=== PATIENT | female | born 1975 | race Caucasian/White ===

== ENCOUNTER → 2016-11-10 | Outpatient (CLI) | payer BC ==
[~2016-11-10] MED LIST: IBUP600T26 PO; MOBI7.5T10 PO; PRIL20CA9 PO; PROA1AER INH; TIZA2CAP3 PO; XANA1TAB2 PO; ZYRT10CA PO; [UNRECOGNIZED DRUG - REMARK] PO
--- NOTE | 2016-11-10 10:11 | REP ---
Complete abdominal sonography: History: Abdominal pain right upper quadrant. Comparison CT study October 19, 2015. Sonographic findings: Scanning through the right upper quadrant of the abdomen demonstrates normal homogeneous liver. Common bile duct is normal post cholecystectomy measuring 0.6 cm in diameter. No focal hepatic lesion is seen. There is no evidence of ascites. The pancreas head region is obscured by abdominal gas. No pancreatic abnormality is observed. A normal size spleen is seen measuring 9.3 cm. It is homogeneous. There is no evidence of ascites. A normal caliber aorta is seen measuring 1.8 cm in greatest diameter. Renal cortical echogenicity pattern is normal and contours are smooth on both sides. The right kidney measures 11.0 x 5.9 x 4.4 cm. Left renal dimensions are 11.1 x 4.7 x 5.3 cm. Impression: Unremarkable complete abdominal sonography. The patient status post cholecystectomy. Signed by Daniel Barcenas MD 11/10/2016 11:22 A
== END ==
LOC: M RAD 07:10
PROVIDERS: ATTEND Family Medicine
DX: R10.84 Generalized abdominal pain (principal)

== ENCOUNTER → 2016-11-14 | Outpatient (CLI) | payer BC ==
[2016-11-14 08:22] LABS: ALBUMIN 3.8 GM/DL (3.2-5.2); ALBUMIN/GLOBULIN RATIO 1.23 (1.00-1.93); ALKALINE PHOSPHATASE 42 U/L (45-117); ALT/SGPT 13 U/L (12-78); AMYLASE 58 U/L (25-115); ANION GAP 7 MEQ/L (8-16); AST/SGOT 13 U/L (15-37); BILIRUBIN,TOTAL 0.3 MG/DL (0.2-1.0); BLOOD UREA NITROGEN 13 MG/DL (7-18); CALCIUM LEVEL 8.4 MG/DL (8.5-10.1); CARBON DIOXIDE LEVEL 28 MEQ/L (21-32); CHLORIDE LEVEL 110 MEQ/L (98-107); CREATININE FOR GFR 0.69 MG/DL (0.55-1.02); GLOMERULAR FILTRATION RATE > 60.0 (>58); GLUCOSE, FASTING 94 MG/DL (70-105); POTASSIUM SERUM 4.2 MEQ/L (3.5-5.1); SODIUM LEVEL 145 MEQ/L (136-145); TOTAL PROTEIN 6.9 GM/DL (6.4-8.2)
== END ==
LOC: M LAB 07:18
PROVIDERS: ATTEND Family Medicine
DX: R10.84 Generalized abdominal pain (principal)

== ENCOUNTER → 2017-02-16 | Outpatient (REF) | payer BC ==
[~2017-02-16] MED LIST changes: +IBUP-1022 PO; -IBUP600T26 PO; +MOBI4TAB PO; -MOBI7.5T10 PO; -PROA1AER INH; +PROAAER10 INH
== END ==
LOC: M SFHCWAGY 15:31
PROVIDERS: ATTEND Family Medicine
DX: Z12.4 Encounter for screening for malignant neoplasm of cervix (principal)

== ENCOUNTER 2017-07-10 10:31 | Emergency (ER) | payer BC ==
[~2017-07-10] VITALS: Ht 162.6 cm; Wt 60.6 kg
[2017-07-10] MEDS ORDERED: LORA10TA2 (10:47)
[2017-07-10] MEDS ORDERED: BENZ100C5 (10:47)
[2017-07-10] MEDS ORDERED: FAMO1TAB11 (10:47)
[2017-07-10] MEDS ORDERED: FLUTISP (10:47)
[2017-07-10] MEDS ORDERED: ASPIRIN 81 MG CHEW TABLET PO ONE (11:15)
[2017-07-10 11:26] LABS: BASO # 0.1 10^3/uL (0.0-0.2); BASO % 1.2 % (0.0-1.0); EOS # 0.1 10^3/uL (0.0-0.50); EOS % 1.4 % (0.0-3.0); IMMATURE GRANULOCYTE % 0.2 % (0-0); LYMPH # 1.9 10^3/uL (1.5-4.5); LYMPH % 37.7 % (24.0-44.0); MEAN CORPUSCULAR HEMOGLOBIN 30.1 pg (27.0-33.0); MEAN CORPUSCULAR HGB CONC 33.2 g/dl (32.0-36.5); MEAN CORPUSCULAR VOLUME 90.8 fl (80.0-96.0); MONO # 0.4 10^3/uL (0.0-0.8); MONO % 7.8 % (0.0-5.0); NEUTROPHILS # 2.7 10^3/uL (1.8-7.7); NEUTROPHILS % 51.7 % (36.0-66.0); PLATELET COUNT, AUTOMATED 227 10^3/uL (150-450); WHITE BLOOD COUNT 5.1 10^3/uL (4.0-10.0)
[2017-07-10 11:30] LABS: INR 1.01
[2017-07-10 11:44] LABS: ALBUMIN 4.2 GM/DL (3.2-5.2); ALBUMIN/GLOBULIN RATIO 1.11 (1.00-1.93); ALKALINE PHOSPHATASE 45 U/L (45-117); ALT/SGPT 19 U/L (12-78); ANION GAP 9 MEQ/L (8-16); AST/SGOT 21 U/L (7-37); BILIRUBIN,DIRECT 0.1 MG/DL (0.0-0.2); BILIRUBIN,TOTAL 0.4 MG/DL (0.2-1.0); BLOOD UREA NITROGEN 14 MG/DL (7-18); CALCIUM LEVEL 8.9 MG/DL (8.5-10.1); CARBON DIOXIDE LEVEL 26 MEQ/L (21-32); CHLORIDE LEVEL 106 MEQ/L (98-107); CREATININE FOR GFR 0.76 MG/DL (0.55-1.02); GLOMERULAR FILTRATION RATE > 60.0 (>58); GLUCOSE, FASTING 90 MG/DL (70-105); POTASSIUM SERUM 3.1 MEQ/L (3.5-5.1); SODIUM LEVEL 141 MEQ/L (136-145)
[2017-07-10] MEDS ORDERED: POTASSIUM CHLORIDE 10 MEQ SR TABLET PO ONE (12:00)
--- NOTE | 2017-07-10 12:05 | REP ---
Portable chest x-ray: Single view. History: Chest pain. Comparison study July 15, 2015. Findings: EKG monitoring electrodes overlie the chest. Lungs are well inflated and clear. Heart is not enlarged. Pulmonary vasculature is not increased. Pleural angles are sharp. No bony abnormality is seen. Impression: Negative portable chest x-ray. Signed by Daniel Barcenas MD 07/10/2017 04:00 P
[2017-07-10] MEDS ORDERED: ASPI81TA85 PO (16:24)
[2017-07-10 16:53] VITALS: BP 122/70
--- NOTE | 2017-07-10 21:17 | ECGEPIP ---
Stationary ECG Study 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
== END 2017-07-10 16:54 | disposition home or self-care (01) ==
LOC: M ED 10:31
DX: E87.6 Hypokalemia (principal); R07.9 Chest pain, unspecified; F41.9 Anxiety disorder, unspecified; G89.29 Other chronic pain; M54.9 Dorsalgia, unspecified; Z82.49 Family history of ischemic heart disease and other diseases of the circulatory system; Z79.82 Long term (current) use of aspirin; Z79.899 Other long term (current) drug therapy

== ENCOUNTER → 2017-07-26 | Outpatient (CLI) | payer BC ==
[2017-07-26 18:41] LABS: INR 1.06
[2017-07-26 18:47] LABS: ALBUMIN 4.4 GM/DL (3.2-5.2); ALBUMIN/GLOBULIN RATIO 1.33 (1.00-1.93); ALKALINE PHOSPHATASE 52 U/L (45-117); ALT/SGPT 18 U/L (12-78); ANION GAP 5 MEQ/L (8-16); AST/SGOT 23 U/L (7-37); BILIRUBIN,DIRECT 0.2 MG/DL (0.0-0.2); BILIRUBIN,TOTAL 0.4 MG/DL (0.2-1.0); BLOOD UREA NITROGEN 10 MG/DL (7-18); CALCIUM LEVEL 8.8 MG/DL (8.5-10.1); CARBON DIOXIDE LEVEL 28 MEQ/L (21-32); CHLORIDE LEVEL 107 MEQ/L (98-107); CREATININE FOR GFR 0.76 MG/DL (0.55-1.02); GLOMERULAR FILTRATION RATE > 60.0 (>58); GLUCOSE, FASTING 84 MG/DL (70-105); POTASSIUM SERUM 4.1 MEQ/L (3.5-5.1); SODIUM LEVEL 140 MEQ/L (136-145); TOTAL PROTEIN 7.7 GM/DL (6.4-8.2)
== END ==
LOC: M LAB 17:31
DX: E83.00 Disorder of copper metabolism, unspecified (principal); E87.6 Hypokalemia; R04.0 Epistaxis
CPT/HCPCS: 82525

== ENCOUNTER → 2017-07-29 | Outpatient (REF) | payer BC | LOC: M SFHCPLAZ 12:32 | DX: E87.6 Hypokalemia (principal); E83.00 Disorder of copper metabolism, unspecified; R04.0 Epistaxis | CPT/HCPCS: 82525 ==

== ENCOUNTER → 2017-08-13 | Outpatient (CLI) | payer BC ==
[2017-08-13 17:48] LABS: MAGNESIUM LEVEL 2.2 MG/DL (1.8-2.4)
== END ==
LOC: M LAB 17:09
DX: I49.3 Ventricular premature depolarization (principal)
CPT/HCPCS: 83735

== ENCOUNTER → 2017-09-20 | Outpatient (CLI) | payer BC | LOC: M RAD 06:26 | DX: R10.11 Right upper quadrant pain (principal); Z90.49 Acquired absence of other specified parts of digestive tract | CPT/HCPCS: 76705 ==

== ENCOUNTER 2017-10-01 06:30 | Day surgery (SDC) | payer BC ==
[2017-10-01] MEDS ORDERED: SIMETHICONE 40MG/0.6ML DROPS 30ML As Ordered (06:58)
[2017-10-01] MEDS ORDERED: LIDOCAINE 2% INJ 100 MG/5 ML SDV (FOR ANES.) As Ordered (07:16)
[2017-10-01] MEDS ORDERED: PROPOFOL 200 MG/20 ML VIAL As Ordered ×2 (07:16→07:50)
[2017-10-01] MEDS ORDERED: METOCLOPRAMIDE INJ 10MG/2ML VIAL (J2765) As Ordered (07:40)
[2017-10-01] MEDS ORDERED: NS 1,000 ML IV (08:00)
== END 2017-10-01 08:27 | disposition home or self-care (01) ==
LOC: M SDC 06:30
DX: R13.10 Dysphagia, unspecified (principal); K29.70 Gastritis, unspecified, without bleeding; I49.9 Cardiac arrhythmia, unspecified; R01.1 Cardiac murmur, unspecified; R10.9 Unspecified abdominal pain; L40.9 Psoriasis, unspecified; F41.9 Anxiety disorder, unspecified; J45.909 Unspecified asthma, uncomplicated; Z79.899 Other long term (current) drug therapy; Z79.3 Long term (current) use of hormonal contraceptives; Z98.51 Tubal ligation status
CPT/HCPCS: 43239

== ENCOUNTER → 2017-11-09 | Outpatient (CLI) | payer BC ==
[~2017-11-09] MED LIST changes: +E-Z-GAS II EFFERVESCENT PACKET (SODIUM BICARB./CITRIC ACID/SIMETHICONE) As Ordered; +E-Z-HD 98% w/w 340GM SUSP BTL As Ordered; +E-Z-PAQUE 96% w/w SUSP 176GM BTL As Ordered; -IBUP-1022 PO; -MOBI4TAB PO; -PRIL20CA9 PO; -PROAAER10 INH; -TIZA2CAP3 PO; -XANA1TAB2 PO; -ZYRT10CA PO; -[UNRECOGNIZED DRUG - REMARK] PO
== END ==
LOC: M RAD 07:21
DX: R13.10 Dysphagia, unspecified (principal)
CPT/HCPCS: 74245

== ENCOUNTER → 2018-03-19 | Outpatient (REF) | payer BC ==
[2018-03-22 14:58] LABS: HPV HYBRID CAPTURE II Negative (Negative)
== END ==
LOC: M SFHCWAGY 14:34
DX: Z12.4 Encounter for screening for malignant neoplasm of cervix (principal)
CPT/HCPCS: G0123

== ENCOUNTER → 2018-06-11 | Outpatient (CLI) | payer BC | LOC: M WHC 12:54 | DX: Z12.31 Encounter for screening mammogram for malignant neoplasm of breast (principal); Z92.0 Personal history of contraception | CPT/HCPCS: 77067 ==

== ENCOUNTER → 2019-07-17 | Outpatient (CLI) | payer BC ==
[~2019-07-17] MED LIST changes: +ALPR0.5T3; +ASPI81TA85 PO; +BENZ-18; +DEPO150I IM; -E-Z-GAS II EFFERVESCENT PACKET (SODIUM BICARB./CITRIC ACID/SIMETHICONE) As Ordered; -E-Z-HD 98% w/w 340GM SUSP BTL As Ordered; -E-Z-PAQUE 96% w/w SUSP 176GM BTL As Ordered; +FAMO1TAB11; +FLUTISP; +IBUP-1022 PO; +IBUP1TAB7 PO; +LORA-243; +MOBI4TAB PO; +PRIL20CA9 PO; +PROAAER10 INH; +TIZA2CAP PO; +XANA1TAB2 PO; +ZYRT10CA PO; +[UNRECOGNIZED DRUG - REMARK] PO
[2019-07-17 09:57] LABS: BASO % 1.1 % (0.0-1.0); EOS # 0.1 10^3/uL (0.0-0.5); EOS % 2.5 % (0.0-3.0); HEMATOCRIT 45.2 % (36.0-47.0); HEMOGLOBIN 14.4 g/dl (12.0-15.5); LYMPH # 1.2 10^3/uL (1.5-5.0); LYMPH % 34.1 % (24.0-44.0); MEAN CORPUSCULAR HEMOGLOBIN 29.7 pg (27.0-33.0); MEAN CORPUSCULAR HGB CONC 31.9 g/dl (32.0-36.5); MEAN CORPUSCULAR VOLUME 93.2 fl (80.0-96.0); MONO # 0.4 10^3/uL (0.0-0.8); MONO % 10.3 % (0.0-5.0); NEUTROPHILS # 1.9 10^3/uL (1.5-8.5); NEUTROPHILS % 51.7 % (36.0-66.0); PLATELET COUNT, AUTOMATED 217 10^3/uL (150-450); RED BLOOD COUNT 4.85 10^6/uL (4.00-5.40); WHITE BLOOD COUNT 3.6 10^3/uL (4.0-10.0)
[2019-07-17 10:41] LABS: ALT/SGPT 21 U/L (12-78); BILIRUBIN,TOTAL 0.3 MG/DL (0.2-1.0); BLOOD UREA NITROGEN 22 MG/DL (7-18); CARBON DIOXIDE LEVEL 28 MEQ/L (21-32); CHLORIDE LEVEL 109 MEQ/L (98-107); CHOLESTEROL LEVEL 162 MG/DL (<200); CHOLESTEROL RISK RATIO 2.531 (<5); CREATININE FOR GFR 0.75 MG/DL (0.55-1.30); FREE T4 0.79 NG/DL (0.76-1.46); GLOMERULAR FILTRATION RATE > 60.0 (>58); GLUCOSE, FASTING 86 MG/DL (70-100); HDL CHOLESTEROL 64 MG/DL (>40); LDL CHOLESTEROL 91 MG/DL (<100); NON-HDL-C 98 MG/DL; POTASSIUM SERUM 4.6 MEQ/L (3.5-5.1); SODIUM LEVEL 143 MEQ/L (136-145); TOTAL PROTEIN 7.4 GM/DL (6.4-8.2); TRIGLYCERIDES LEVEL 35 MG/DL (<150)
== END ==
LOC: M PLALAB 07:59
PROVIDERS: ATTEND Internal Medicine
DX: R10.11 Right upper quadrant pain (principal); R53.82 Chronic fatigue, unspecified; Z82.49 Family history of ischemic heart disease and other diseases of the circulatory system

== ENCOUNTER → 2020-04-08 | Outpatient (CLI) | payer BC ==
[~2020-04-08] MED LIST changes: -ASPI81TA85 PO; +ASPI81TA86 PO
[2020-04-08 17:59] LABS: HEMATOCRIT 42.7 % (36.0-47.0); HEMOGLOBIN 13.8 g/dl (12.0-15.5); MEAN CORPUSCULAR HEMOGLOBIN 29.6 pg (27.0-33.0); MEAN CORPUSCULAR HGB CONC 32.3 g/dl (32.0-36.5); MEAN CORPUSCULAR VOLUME 91.6 fl (80.0-96.0); PLATELET COUNT, AUTOMATED 239 10^3/uL (150-450); RED BLOOD COUNT 4.66 10^6/uL (4.00-5.40); WHITE BLOOD COUNT 4.8 10^3/uL (4.0-10.0)
[2020-04-08 18:19] LABS: ALBUMIN 3.9 GM/DL (3.2-5.2); ALT/SGPT 29 U/L (12-78); BILIRUBIN,TOTAL 0.3 MG/DL (0.2-1.0); BLOOD UREA NITROGEN 21 MG/DL (7-18); CARBON DIOXIDE LEVEL 30 MEQ/L (21-32); CHLORIDE LEVEL 106 MEQ/L (98-107); CREATININE FOR GFR 0.81 MG/DL (0.55-1.30); GLOMERULAR FILTRATION RATE > 60.0 (>58); GLUCOSE, FASTING 80 MG/DL (70-100); POTASSIUM SERUM 4.1 MEQ/L (3.5-5.1); SODIUM LEVEL 139 MEQ/L (136-145); TOTAL PROTEIN 7.5 GM/DL (6.4-8.2)
== END ==
LOC: M PLALAB 15:51
DX: M06.9 Rheumatoid arthritis, unspecified (principal)

== ENCOUNTER → 2020-04-29 | Outpatient (REF) | payer BC | LOC: M SFHCPLAZ 15:20 | DX: M05.741 Rheumatoid arthritis with rheumatoid factor of right hand without organ or systems involvement (principal) ==

== ENCOUNTER → 2020-05-19 | Outpatient (REF) | payer BC ==
[2020-05-19 13:35] LABS: BASO # 0.1 10^3/uL (0.0-0.2); BASO % 0.9 % (0.0-1.0); EOS # 0.1 10^3/uL (0.0-0.5); EOS % 1.1 % (0.0-3.0); HEMATOCRIT 42.7 % (36.0-47.0); HEMOGLOBIN 13.7 g/dl (12.0-15.5); LYMPH # 1.3 10^3/uL (1.5-5.0); LYMPH % 25.1 % (24.0-44.0); MEAN CORPUSCULAR HEMOGLOBIN 29.5 pg (27.0-33.0); MEAN CORPUSCULAR HGB CONC 32.1 g/dl (32.0-36.5); MEAN CORPUSCULAR VOLUME 91.8 fl (80.0-96.0); MONO # 0.6 10^3/uL (0.0-0.8); MONO % 11.2 % (0.0-5.0); NEUTROPHILS # 3.3 10^3/uL (1.5-8.5); NEUTROPHILS % 61.5 % (36.0-66.0); PLATELET COUNT, AUTOMATED 221 10^3/uL (150-450); RED BLOOD COUNT 4.65 10^6/uL (4.00-5.40); WHITE BLOOD COUNT 5.3 10^3/uL (4.0-10.0)
[2020-05-19 13:56] LABS: ERYTHROCYTE SEDIMENTATION RATE 9 mm/hr (0-20)
[2020-05-19 13:57] LABS: ALBUMIN 4.2 GM/DL (3.2-5.2); ALT/SGPT 20 U/L (12-78); BILIRUBIN,TOTAL 0.4 MG/DL (0.2-1.0); BLOOD UREA NITROGEN 14 MG/DL (7-18); CARBON DIOXIDE LEVEL 27 MEQ/L (21-32); CHLORIDE LEVEL 107 MEQ/L (98-107); CREATININE FOR GFR 0.72 MG/DL (0.55-1.30); GLOMERULAR FILTRATION RATE > 60.0 (>58); GLUCOSE, FASTING 73 MG/DL (70-100); POTASSIUM SERUM 4.3 MEQ/L (3.5-5.1); SODIUM LEVEL 140 MEQ/L (136-145); TOTAL PROTEIN 7.6 GM/DL (6.4-8.2)
[2020-05-19 14:17] LABS: HEPATITIS B SURFACE ANTIGEN NEGATIVE (NEGATIVE)
[2020-05-19 14:45] LABS: HEPATITIS C VIRUS ABY INDEX 0.1 INDEX (<0.8)
[2020-05-20 23:07] LABS: ANA (HEP2) Positive (.); HEPATITIS B CORE ANTIBODY IGG Negative (Negative); Lyme Disease IgG/IgM Antibodie <0.91 ISR (0.00-0.90); Lyme Disease IgM Ab Quantitati <0.80 index (0.00-0.79); SMITHS ANTIBODY 0.4 AI (0.0-0.9)
== END ==
LOC: M SFHCRHEU 10:12
PROVIDERS: ATTEND Internal Medicine
DX: L40.50 Arthropathic psoriasis, unspecified (principal)

== ENCOUNTER → 2020-07-29 | Outpatient (REF) | payer BC ==
[2020-07-29 16:23] LABS: ALBUMIN 4.1 GM/DL (3.2-5.2); ALT/SGPT 21 U/L (12-78); BILIRUBIN,TOTAL 0.4 MG/DL (0.2-1.0); BLOOD UREA NITROGEN 21 MG/DL (7-18); CALCIUM LEVEL 8.8 MG/DL (8.5-10.1); CARBON DIOXIDE LEVEL 25 MEQ/L (21-32); CHLORIDE LEVEL 108 MEQ/L (98-107); CPK CREATINE PHOSPHOKINASE 91 U/L (26-192); CREATININE FOR GFR 1.01 MG/DL (0.55-1.30); GLOMERULAR FILTRATION RATE > 60.0 (>58); GLUCOSE, FASTING 82 MG/DL (70-100); SODIUM LEVEL 138 MEQ/L (136-145); TOTAL PROTEIN 7.4 GM/DL (6.4-8.2)
[2020-07-29 18:04] LABS: PTH INTACT 24.4 PG/ML (18.5-88.0); TOTAL 25(OH) VITAMIN D 29.2 NG/ML (30.0-100.0)
== END ==
LOC: M PLALAB 13:14
PROVIDERS: ATTEND Family Medicine
DX: R76.8 Other specified abnormal immunological findings in serum (principal); E55.9 Vitamin D deficiency, unspecified

== ENCOUNTER → 2020-09-27 | Outpatient (REF) | payer BC ==
[2020-09-27 17:42] LABS: BASO % 0.9 % (0.0-1.0); EOS % 0.7 % (0.0-3.0); HEMATOCRIT 40.6 % (36.0-47.0); HEMOGLOBIN 12.9 g/dl (12.0-15.5); LYMPH # 1.1 10^3/uL (1.5-5.0); LYMPH % 25.3 % (24.0-44.0); MEAN CORPUSCULAR HEMOGLOBIN 28.6 pg (27.0-33.0); MEAN CORPUSCULAR HGB CONC 31.8 g/dl (32.0-36.5); MONO # 0.6 10^3/uL (0.0-0.8); MONO % 13.1 % (2.0-8.0); NEUTROPHILS # 2.7 10^3/uL (1.5-8.5); NEUTROPHILS % 59.8 % (36.0-66.0); PLATELET COUNT, AUTOMATED 197 10^3/uL (150-450); RED BLOOD COUNT 4.51 10^6/uL (4.00-5.40); WHITE BLOOD COUNT 4.5 10^3/uL (4.0-10.0)
[2020-09-27 18:14] LABS: ALBUMIN 4.1 GM/DL (3.2-5.2); ALT/SGPT 25 U/L (12-78); BILIRUBIN,TOTAL 0.4 MG/DL (0.2-1.0); BLOOD UREA NITROGEN 19 MG/DL (7-18); CALCIUM LEVEL 8.7 MG/DL (8.5-10.1); CARBON DIOXIDE LEVEL 26 MEQ/L (21-32); CHLORIDE LEVEL 105 MEQ/L (98-107); GLOMERULAR FILTRATION RATE > 60.0 (>58); GLUCOSE, FASTING 80 MG/DL (70-100); POTASSIUM SERUM 3.8 MEQ/L (3.5-5.1); SODIUM LEVEL 137 MEQ/L (136-145); TOTAL PROTEIN 7.3 GM/DL (6.4-8.2)
[2020-09-27 18:30] LABS: ERYTHROCYTE SEDIMENTATION RATE 11 mm/hr (0-20)
== END ==
LOC: M SFHCRHEU 12:15
PROVIDERS: ATTEND Internal Medicine
DX: L40.50 Arthropathic psoriasis, unspecified (principal)

== ENCOUNTER → 2020-10-05 | Outpatient (CLI) | payer BC ==
--- NOTE | 2020-10-05 09:49 | REPMRS ---
Patient History The patient states she has not had a clinical breast exam in over a year. No known family history of cancer. Taking hormonal contraceptives for 15 years. Patient states she was diagnosed with psoriatic arthritis 03/2020 Digital Woman Screen Mammo: October 05, 2020 - Exam #: [id number] Bilateral CC and MLO view(s) were taken. Technologist: Jemma Pena, Technologist Prior study comparison: June 11, 2018, bilateral digital woman screen mammo performed at [facility]. February 09, 2014, bilateral digital woman screen mammo, performed at [facility]. June 27, 2012, bilateral digital woman screen mammo, performed at [facility]. FINDINGS: The breast tissue is heterogeneously dense. This may lower the sensitivity of mammography. The Volpara volumetric breast density category is: C. There is a moderate amount of heterogeneously dense fibroglandular tissue which is fairly symmetric. There is no interval development of dominant mass, architectural distortion, or grouped microcalcification typical of malignancy. There has been no change in the appearance of the mammogram from the prior studies. 3-D tomosynthesis shows no additional findings. Assessment: BI-RADS/ACR category 1 mammogram. Negative Mammogram. Recommendation Routine screening mammogram of both breasts in 1 year (for women over age 40). This patient's [facility] Lifetime Breast Cancer RIsk is estimated at 9.4 %. This mammogram was interpreted with the aid of an FDA-approved computer-aided dectection system. Electronically Signed By: Long Barcenas MD 10/05/20 0980
== END ==
LOC: M WHC 08:23
PROVIDERS: ATTEND Family Medicine
DX: Z12.31 Encounter for screening mammogram for malignant neoplasm of breast (principal); Z79.3 Long term (current) use of hormonal contraceptives

== ENCOUNTER → 2020-11-02 | Outpatient (REF) | payer BC ==
[2020-11-02 14:49] LABS: BASO % 0.9 % (0.0-1.0); EOS % 0.6 % (0.0-3.0); HEMATOCRIT 44.7 % (36.0-47.0); HEMOGLOBIN 14.4 g/dl (12.0-15.5); LYMPH # 1.2 10^3/uL (1.5-5.0); LYMPH % 25.3 % (24.0-44.0); MEAN CORPUSCULAR HEMOGLOBIN 29.6 pg (27.0-33.0); MEAN CORPUSCULAR HGB CONC 32.2 g/dl (32.0-36.5); MONO # 0.6 10^3/uL (0.0-0.8); MONO % 12.4 % (2.0-8.0); NEUTROPHILS # 2.8 10^3/uL (1.5-8.5); NEUTROPHILS % 60.6 % (36.0-66.0); PLATELET COUNT, AUTOMATED 187 10^3/uL (150-450); RED BLOOD COUNT 4.86 10^6/uL (4.00-5.40); WHITE BLOOD COUNT 4.7 10^3/uL (4.0-10.0)
[2020-11-02 15:28] LABS: FREE T4 0.91 NG/DL (0.76-1.46); THYROID STIMULATING HORMONE 1.97 uIU/ML (0.358-3.740)
== END ==
LOC: M SFHCPLAZ 08:57
PROVIDERS: ATTEND Physician Assistant Medical
DX: L40.50 Arthropathic psoriasis, unspecified (principal); F41.1 Generalized anxiety disorder

== ENCOUNTER → 2020-11-16 | Outpatient (CLI) | payer BC ==
--- NOTE | 2020-11-16 09:30 | REPPI ---
INDICATION: CERVICOGENIC HEADACHE COMPARISON: None. TECHNIQUE: AP, lateral, flexion/extension, bilateral oblique, and open-mouth views. FINDINGS: Alignment is maintained. There is no evidence for acute fracture / compression injury or subluxation. Mild focal degenerative change at C5-6 and C6-7 include endplate sclerosis with minimal disc space narrowing. Remainder of the examination is age-appropriate. Oblique views demonstrate patent neural foramen. Open mouth view demonstrates normal C1-C2 articulation and odontoid process. IMPRESSION: Mild degenerative spondylosis at C5-6 and C6-7. <Electronically signed by Elio Amaya > 11/16/20 0905
== END ==
LOC: M PLAIMG 08:05
PROVIDERS: ATTEND Family Medicine
DX: R51.9 Headache, unspecified (principal)

== ENCOUNTER → 2020-12-01 | Outpatient (CLI) | payer BC ==
--- NOTE | 2020-12-01 11:24 | REP ---
INDICATION: FACIAL PARESTHESIA, CERVICAL RADICULOPATHY, KELLER. COMPARISON: Comparison MRI study is from 19 May 2015.. TECHNIQUE: Axial and sagittal imaging planes are utilized for T1 and T2-weighted scans. Sequences include spin-echo, fast spin echo, FLAIR, and diffusion weighted sequences. FINDINGS: No bony calvarial lesion is seen. Craniocervical junction and upper cervical cord are normal in appearance. There is no MR evidence of significant paranasal sinus disease. No intraorbital abnormality is seen. The lateral, third, and fourth ventricles are normal in size and position. Lr-white differentiation pattern is intact above and below the tentorium. There is no evidence of intracranial hemorrhage. No mass, infarction, extra-axial fluid collection or midline shift is seen. No abnormal white matter lesion is seen. There is a persistent cavum septum pellucidum noted, normal variant. IMPRESSION: Negative noncontrast brain MRI study. <Electronically signed by Long Barcenas > 12/01/20 [id number]
--- NOTE | 2020-12-01 11:34 | REP ---
INDICATION: FACIAL PARESTHESIA, CERVICAL RADICULOPATHY, KELLER. COMPARISON: Comparison MRI cervical spine 14 September 2014.. TECHNIQUE: Sagittal and axial T1 and T2-weighted scans are acquired in the usual fashion with and without fat saturation. Sequences include spin echo, turbo spin-echo, and STIR imaging sequences. FINDINGS: There is straightening of the normal cervical lordosis again noted. Cortical and medullary bone signal intensity are normal. There are mild reactive marrow edema changes on either side of the C5-6 disc. Craniocervical junction is unremarkable. Cervical cord is normal in course, caliber and signal intensity on T1 and T2 weighted scans. Axial and sagittal images taken at the C2-3 level show no abnormality. At C3-4, there is no evidence of disc protrusion, spinal stenosis or thecal sac compression. At C4-5 the disc is preserved in height. No focal disc protrusion is seen. No neural foraminal narrowing is seen. The C5-6 disc is narrowed in height and there is diffuse disc bulging and posterior osteophytic ridging. Bilateral uncovertebral spurring is noted. Neural foraminal encroachment is a little more prominent on the left than the right. These changes are more pronounced than on the 2015 prior study. At C6-7, there is degenerative disc narrowing and diffuse posterior disc bulging with osteophytic ridging also noted. Uncovertebral spurring is noted bilaterally at C6-7 as well. This is a little more prominent on the left. The C6-7 level it is essentially unchanged from the comparison study 2014. At C7-T1, there is no abnormality. IMPRESSION: Degenerative spondylosis changes. There is some progression at C5-6 with posterior osteophytic ridging and diffuse disc bulging and bilateral neural foraminal narrowing. <Electronically signed by Long Barcenas > 12/01/20 1076
== END ==
LOC: M PLARAD 09:57
PROVIDERS: ATTEND Family Medicine
DX: R20.2 Paresthesia of skin (principal); R51.9 Headache, unspecified; M47.22 Other spondylosis with radiculopathy, cervical region; M25.78 Osteophyte, vertebrae

== ENCOUNTER → 2020-12-21 | Outpatient (REF) | payer BC | LOC: M SFHCWAGY 13:31 | PROVIDERS: ATTEND Nurse Practitioner Women's Health | DX: Z12.4 Encounter for screening for malignant neoplasm of cervix (principal) | CPT/HCPCS: 87624; G0123 ==

== ENCOUNTER → 2020-12-23 | Outpatient (CLI) | payer BC ==
--- NOTE | 2020-12-23 11:23 | REPVR ---
PROCEDURE INFORMATION: Exam: MR Lumbar Spine Without Contrast Exam date and time: 12/23/2020 10:31 AM Age: 45 years old Clinical indication: Low back pain; Patient HX: Lbp; Additional info: Lumbar back pain, sensation disturbance of skin TECHNIQUE: Imaging protocol: Multiplanar magnetic resonance images of the lumbar spine without intravenous contrast. COMPARISON: No relevant prior studies available. FINDINGS: Vertebrae: The lumbar vertebral bodies are normal in height,signal intensity and alignment.No acute fracture or dislocation is seen. Spinal epidural space: There is no evidence of epidural masses or hemorrhage. Spinal cord: The conus medullaris is normal. The cauda equina nerve roots demonstrate no crowding or displacement. L1-L2: There is no significant degenerative disc herniation.The spinal canal and neural foramina are patent and without significant stenosis. L2-L3: There is no significant degenerative disc herniation.The spinal canal and neural foramina are patent and without significant stenosis. L3-L4: Small diffuse posterior herniation causing mild indentation of the thecal sac. Mild facet arthropathy.There is no evidence of spinal canal narrowing. There is mild bilateral foraminal stenosis. L4-L5: There is a mild diffuse posterior bulge causing mild effacement of the thecal sac.There is a small focus of increased signal intensity posteriorly, consistent with an annular tear. The facet joints demonstrate mild degenerative hypertrophy and sclerosis.There is no evidence of spinal canal narrowing. There is no evidence of foraminal stenosis. L5-S1: Small posterior and left paracentral protrusion, abutting the left S1 nerve root. The facet joints demonstrate mild degenerative hypertrophy and sclerosis.There is mild spinal canal narrowing, with an AP canal dimension of 10 mm.Mild left lateral recess and foraminal stenosis. Soft tissues: The prevertebral soft tissues appear normal. IMPRESSION: MRI of the lumbar spine reveals multilevel degenerative spondylitic changes and degenerative disc disease as described above. Electronically signed by: Tone Lang On 12/23/2020 11:22:38 AM
== END ==
LOC: M PLARAD 09:25
PROVIDERS: ATTEND Physician Assistant
DX: R20.9 Unspecified disturbances of skin sensation (principal); M54.5 Low back pain

== ENCOUNTER → 2020-12-31 | Outpatient (REF) | payer BC ==
[2020-12-31 11:12] LABS: APPEARANCE, URINE CLEAR (CLEAR); BACTERIA, URINE AUTO NEGATIVE (NEGATIVE); BILIRUBIN, URINE AUTO NEGATIVE (NEGATIVE); BLOOD, URINE BLOOD NEGATIVE (NEGATIVE); COLOR, URINE YELLOW (YELLOW); GLUCOSE, URINE (UA) AUTO NEGATIVE (NEGATIVE); KETONE, URINE AUTO NEGATIVE (NEGATIVE); LEUKOCYTE ESTERASE, URINE AUTO NEGATIVE (NEGATIVE); NITRITE, URINE AUTO NEGATIVE (NEGATIVE); PROTEIN, URINE AUTO NEGATIVE (NEGATIVE); RBC, URINE AUTO 0 /HPF (0-3); SPECIFIC GRAVITY URINE AUTO 1.008 (1.002-1.035); SQUAMOUS EPITHELIAL CELL UR AU 0 /HPF (0-6); UROBILINOGEN, URINE AUTO 0.2 mg/dL (0.0-2.0); WBC, URINE AUTO 0 /HPF (0-3)
[2020-12-31 11:13] LABS: BASO % 0.8 % (0.0-1.0); EOS # 0.1 10^3/uL (0.0-0.5); EOS % 1.4 % (0.0-3.0); HEMATOCRIT 43.3 % (36.0-47.0); HEMOGLOBIN 13.9 g/dl (12.0-15.5); MEAN CORPUSCULAR HEMOGLOBIN 29.4 pg (27.0-33.0); MEAN CORPUSCULAR HGB CONC 32.1 g/dl (32.0-36.5); MEAN CORPUSCULAR VOLUME 91.5 fl (80.0-96.0); MONO # 0.5 10^3/uL (0.0-0.8); MONO % 12.5 % (2.0-8.0); NEUTROPHILS # 2.2 10^3/uL (1.5-8.5); PLATELET COUNT, AUTOMATED 240 10^3/uL (150-450); RED BLOOD COUNT 4.73 10^6/uL (4.00-5.40); WHITE BLOOD COUNT 3.7 10^3/uL (4.0-10.0)
[2020-12-31 11:40] LABS: CREATININE,RANDOM URINE 37.6 MG/DL; TOTAL PROTEIN,RANDOM URINE 7.9 MG/DL (0.0-12.0)
[2020-12-31 11:44] LABS: ERYTHROCYTE SEDIMENTATION RATE 7 mm/hr (0-20)
[2020-12-31 11:53] LABS: ALBUMIN 4.2 GM/DL (3.2-5.2); ALT/SGPT 35 U/L (12-78); BILIRUBIN,TOTAL 0.4 MG/DL (0.2-1.0); BLOOD UREA NITROGEN 12 MG/DL (7-18); CALCIUM LEVEL 9.1 MG/DL (8.5-10.1); CARBON DIOXIDE LEVEL 28 MEQ/L (21-32); CHLORIDE LEVEL 107 MEQ/L (98-107); COMPLEMENT C3 81 MG/DL (90-180); COMPLEMENT C4 32 MG/DL (10-40); CREATININE FOR GFR 0.64 MG/DL (0.55-1.30); GLOMERULAR FILTRATION RATE > 60.0 (>58); GLUCOSE, FASTING 82 MG/DL (70-100); IMMUNOGLOBULIN G 1070 MG/DL (681-1648); POTASSIUM SERUM 3.9 MEQ/L (3.5-5.1); SODIUM LEVEL 139 MEQ/L (136-145); TOTAL PROTEIN 7.5 GM/DL (6.4-8.2)
[2021-01-03 13:18] LABS: ALBUMIN % 59.3 % (55.8-66.1); ALPHA-1-GLOBULIN % 3.6 % (2.9-4.9); ALPHA-2-GLOBULINS % 9.6 % (7.1-11.8)
[2021-01-03 13:19] LABS: ALBUMIN 4.45 GM/DL (3.29-5.55); ALPHA-1-GLOBULINS 0.27 GM/DL (0.17-0.41); ALPHA-2-GLOBULINS 0.72 GM/DL (0.42-0.99); BETA-1-GLOBULINS 0.47 GM/DL (0.28-0.60); BETA-1-GLOBULINS % 6.2 % (4.7-7.2); BETA-2-GLOBULINS 0.38 GM/DL (0.19-0.55); BETA-2-GLOBULINS % 5.1 % (3.2-6.5); GAMMA GLOBULIN % 16.2 % (11.1-18.8); GAMMA GLOBULINS 1.22 GM/DL (0.65-1.58)
[2021-01-03 16:22] LABS: ANTI DS-DNA AB Positive (Negative)
== END ==
LOC: M SFHCRHEU 08:46
PROVIDERS: ATTEND Internal Medicine Rheumatology
DX: R76.8 Other specified abnormal immunological findings in serum (principal)

== ENCOUNTER → 2021-01-05 | Outpatient (REF) | payer BC ==
[2021-01-05 12:11] LABS: ALBUMIN 3.9 GM/DL (3.2-5.2); ALT/SGPT 28 U/L (12-78); BILIRUBIN,TOTAL 0.5 MG/DL (0.2-1.0); BLOOD UREA NITROGEN 12 MG/DL (7-18); CALCIUM LEVEL 9.1 MG/DL (8.5-10.1); CARBON DIOXIDE LEVEL 26 MEQ/L (21-32); CHLORIDE LEVEL 107 MEQ/L (98-107); CREATININE FOR GFR 0.66 MG/DL (0.55-1.30); GLOMERULAR FILTRATION RATE > 60.0 (>58); GLUCOSE, FASTING 82 MG/DL (70-100); POTASSIUM SERUM 3.9 MEQ/L (3.5-5.1); SODIUM LEVEL 141 MEQ/L (136-145); TOTAL PROTEIN 7.3 GM/DL (6.4-8.2)
== END ==
LOC: M SFHCPLAZ 10:57
PROVIDERS: ATTEND Physician Assistant Medical
DX: R07.89 Other chest pain (principal)

== ENCOUNTER → 2021-01-05 | Outpatient (CLI) | payer BC ==
--- NOTE | 2021-01-05 11:20 | REPPI ---
INDICATION: R07.89 BURNING CHEST PAIN COMPARISON: 07/10/2017 TECHNIQUE: PA and lateral. FINDINGS: The mediastinum and cardiac silhouette are normal. The lung crowder are clear and without acute consolidation, effusion, or pneumothorax. A questionable 5 mm nodule in the left mid lung zone cannot be excluded. The skeletal structures are intact and normal. IMPRESSION: Possible 5 mm nodule in the left mid lung zone. No focal consolidation or effusion. <Electronically signed by Elio Amaya > 01/05/21 1110
== END ==
LOC: M PLAIMG 10:58
PROVIDERS: ATTEND Physician Assistant Medical
DX: R07.89 Other chest pain (principal); R91.8 Other nonspecific abnormal finding of lung field

== ENCOUNTER → 2021-01-18 | Outpatient (CLI) | payer BC ==
--- NOTE | 2021-01-20 16:44 | HOLTMON ---
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 No episodes of atrial fibrillation. No supraventricular ectopy.Occasional PVCs(551) including 51 couplets. No ventricular tachycardia.No episodes of progressive or high-grade AV block or sinus arrest. Maximum heart rate of 159 bpm occurred during running. 01/18/2021 at 2:09 PM, dizziness, sinus rhythm, 77 bpm. 01/18/2021 at 3:36 PM, feeling flutter, Sinus rhythm 81 bpm. 01/19/2021 at 8:30 AM, nausea & flutter feeling, sinus rhythm, 64 bpm. 01/18/2021 at 2:20 PM, palpitations, sinus rhythm, 68 bpm. Electronically Signed on 01-20-2021 16:44:33 EDT by Kiran Barriga
--- NOTE | 2021-01-22 14:22 | ECHO ---
ECHOCARDIOGRAM DATE OF PROCEDURE: 01/18/2021 Age: 45 Gender: Female Height: 163 cm Weight: 58 kg REFERRING PHYSICIAN: Dirk Hernandez M.D. INDICATION: Palpitations. MEASUREMENTS: 2D Measurements: Interventricular septum 0.89 cm Posterior wall 0.79 cm Left ventricle diastole 4.6 cm Left ventricle systole 3.0 cm Aortic root 2.7 cm Left atrium 3.2 cm Left atrial volume index 23 Proximal ascending aorta 2.0 cm CVP 5-10 mmHg Doppler Measurements: Very mild mitral regurgitation, within normal limits Mitral E velocity 108 cm/s Mitral A velocity 34.1 cm/s Mitral deceleration time 148 msec Trace tricuspid regurgitation Trace pulmonic regurgitation MITRAL ANNULAR TISSUE DOPPLER: E prime septal 15.2 cm/s E prime lateral 19.9 cm/s DESCRIPTION: Rhythm was predominantly sinus bradycardia. Image quality was adequate. No pericardial effusion. This was a 2D, M-mode, color flow Doppler and pulsed wave Doppler examination including mitral annular tissue Doppler. CONCLUSIONS: 1. Normal left ventricle internal dimensions and wall thickness. Normal regional left ventricular (LV) wall motion and wall thickening. Normal LV systolic function. Left ventricular ejection fraction (LVEF) 60-65% by visual estimate. Supernormal LV diastolic function. 2. Otherwise normal echocardiogram Doppler.
== END ==
LOC: M CARPUL 11:55
PROVIDERS: ATTEND Family Medicine
DX: R00.2 Palpitations (principal)

== ENCOUNTER → 2021-02-23 | Outpatient (CLI) | payer BC ==
[~2021-02-23] MED LIST changes: +ISOVUE-370 76% 100ML VIAL ONE
--- NOTE | 2021-02-23 11:10 | REP ---
INDICATION: LUNG NODULE. COMPARISON: CTA chest 01/11/2014, two-view chest 01/05/2021 TECHNIQUE: Bolus 75 mL Isovue 370 scanning through the chest with coronal and sagittal reconstructions provided. FINDINGS: On image 31 there is a posterior segment right upper lobe 5 mm subpleural nodule in the paraspinal region which would project more laterally on a PA chest view and likely represents the density in question on radiograph. I do not see other left upper lobe nodules calcified pleural plaque or acute infiltrate. There are no chest wall lesions in the left hemithorax. The right lung was clear. Neither shows pleural effusion or acute infiltrate. The heart is not enlarged. There is no pathologic sized mediastinal, hilar, axillary or supraclavicular adenopathy there are multiple axillary nodes that are all subcentimeter. The thoracic aorta shows no aneurysm or dissection. The main, right, left and visualized lobar pulmonary arteries are without filling defects. Bone windows show the sternum, manubrium, clavicles, AC joints, visualized portions of scapulae and humeral heads, ribs and spine without acute finding. The upper abdomen and visualized liver unremarkable. There is prior cholecystectomy. Spleen not enlarged. Adrenal glands normal. Left kidney upper pole seen and unremarkable. That portion of pancreas included was unremarkable. Visualized bowel loops intact. IMPRESSION: 1. There is a 5 mm subpleural nodule in the left upper lobe that may correspond to the radiographic finding on CT. The nodule has no calcifications associated it. This a probably benign nodule. For new nodules in the 4-6 mm range, Fleischner Society recommendations are for six-month follow-up which could be performed with low-dose CT technique. 2. No other significant or acute finding. <Electronically signed by Abdon Skinner > 02/23/21 3428
== END ==
LOC: M PLAIMG 10:02
PROVIDERS: ATTEND Family Medicine
DX: R91.1 Solitary pulmonary nodule (principal)
CPT/HCPCS: 71260; Q9967

== ENCOUNTER → 2021-03-30 | Outpatient (CLI) | payer BC ==
[~2021-03-30] MED LIST changes: -ISOVUE-370 76% 100ML VIAL ONE
[2021-03-30 10:52] LABS: BASO # 0.1 10^3/uL (0.0-0.2); BASO % 0.9 % (0.0-1.0); EOS # 0.1 10^3/uL (0.0-0.5); EOS % 1.2 % (0.0-3.0); HEMATOCRIT 40.7 % (36.0-47.0); HEMOGLOBIN 13.2 g/dl (12.0-15.5); LYMPH # 1.3 10^3/uL (1.5-5.0); LYMPH % 22.5 % (24.0-44.0); MEAN CORPUSCULAR HEMOGLOBIN 29.5 pg (27.0-33.0); MEAN CORPUSCULAR HGB CONC 32.4 g/dl (32.0-36.5); MEAN CORPUSCULAR VOLUME 91.1 fl (80.0-96.0); MONO # 0.7 10^3/uL (0.0-0.8); MONO % 12.5 % (2.0-8.0); NEUTROPHILS # 3.6 10^3/uL (1.5-8.5); NEUTROPHILS % 62.7 % (36.0-66.0); PLATELET COUNT, AUTOMATED 250 10^3/uL (150-450); RED BLOOD COUNT 4.47 10^6/uL (4.00-5.40); WHITE BLOOD COUNT 5.7 10^3/uL (4.0-10.0)
[2021-03-30 11:20] LABS: ALBUMIN 3.6 GM/DL (3.2-5.2); ALT/SGPT 21 U/L (12-78); BILIRUBIN,TOTAL 0.4 MG/DL (0.2-1.0); BLOOD UREA NITROGEN 13 MG/DL (7-18); CALCIUM LEVEL 8.8 MG/DL (8.5-10.1); CARBON DIOXIDE LEVEL 30 MEQ/L (21-32); CHLORIDE LEVEL 110 MEQ/L (98-107); COMPLEMENT C3 89 MG/DL (90-180); COMPLEMENT C4 26 MG/DL (10-40); CREATININE FOR GFR 0.67 MG/DL (0.55-1.30); GLOMERULAR FILTRATION RATE > 60.0 (>58); GLUCOSE, FASTING 90 MG/DL (70-100); POTASSIUM SERUM 4.2 MEQ/L (3.5-5.1); SODIUM LEVEL 141 MEQ/L (136-145)
[2021-03-30 12:33] LABS: ERYTHROCYTE SEDIMENTATION RATE 8 mm/hr (0-20)
[2021-04-01 12:58] LABS: DRVV SCREEN 45.7 SEC
[2021-04-01 13:06] LABS: PTT LUPUS TYPE ANTICOAG SCREEN 1.2 (0-1.2)
[2021-04-01 13:14] LABS: DRVV CONFIRM 40.1 SEC; LUPUS CONFIRM RATIO 1.1
[2021-04-01 13:16] LABS: NORMALIZED RATIO 1.09 (0.00-1.20)
[2021-04-01 23:07] LABS: ANTI DOUBLE STRAND-DNA AB 1 IU/mL (0-9); ANTINUCLEAR ANTIBODIES DIRECT Positive (Negative); BETA 2 MICROGLOBULIN 1.4 mg/L (0.6-2.4); CARDIOLIPIN IGA ANTIBODY <9 APL U/mL (0-11); CARDIOLIPIN IGG ANTIBODY <9 GPL U/mL (0-14); CARDIOLIPIN IGM ANTIBODY 15 MPL U/mL (0-12); H PYLORI SERUM QUANT IgG ABY 0.13 (0.00-0.79); RNP ANTIBODIES 5.2 AI (0.0-0.9); SJOGREN'S ANTI SS-A <0.2 AI (0.0-0.9); SJOGREN'S ANTI SS-B <0.2 AI (0.0-0.9); SMITH ANTIBODIES 0.6 AI (0.0-0.9)
== END ==
LOC: M PLALAB 08:15
PROVIDERS: ATTEND Family Medicine
DX: L40.50 Arthropathic psoriasis, unspecified (principal)

== ENCOUNTER → 2021-07-28 | Outpatient (REF) | LOC: M LABSMTC 13:33 | PROVIDERS: ATTEND Pediatrics | DX: Z11.52 Encounter for screening for COVID-19 (principal) ==

== ENCOUNTER → 2021-09-19 | Outpatient (CLI) | payer BC ==
[~2021-09-19] MED LIST changes: +COSE1INJ SC; +D31000TA2 PO; +PANT20TA6 PO; +PARO10TA3 PO
== END ==
LOC: M LABSMTC 11:35
PROVIDERS: ATTEND Anesthesiology
DX: Z20.828 Contact with and (suspected) exposure to other viral communicable diseases (principal); Z11.59 Encounter for screening for other viral diseases

== ENCOUNTER → 2021-10-10 | Outpatient (CLI) | payer BC ==
[~2021-10-10] MED LIST changes: -D31000TA2 PO; +VITA100093 PO
== END ==
LOC: M LABSMTC 09:48
PROVIDERS: ATTEND Anesthesiology
DX: Z01.818 Encounter for other preprocedural examination (principal); Z11.52 Encounter for screening for COVID-19

== ENCOUNTER 2021-10-13 06:39 | Day surgery (SDC) | payer BC ==
[~2021-10-13] VITALS: Ht 162.6 cm; Wt 65.8 kg
[~2021-10-13 06:39] MED LIST changes: +NS 1,000 ML IV ONE
[2021-10-13] MEDS ORDERED: propofoL 200 MG/20 ML VIAL As Ordered ONE (07:31)
[2021-10-13] MEDS ORDERED: MIDAZOLAM INJ 2MG/2ML VIAL (J2250 PER 1MG) As Ordered ONE (07:31)
[2021-10-13] MEDS ORDERED: LIDOCAINE 2% 100MG/5ML SDV (FOR ANES.) As Ordered ONE (07:31)
[2021-10-13 08:22] VITALS: BP 104/71
== END 2021-10-13 08:25 | disposition home or self-care (01) ==
LOC: M OPP 06:39
PROVIDERS: ATTEND Internal Medicine Gastroenterology
DX: R12 Heartburn (principal); K22.70 Barrett's esophagus without dysplasia; K29.70 Gastritis, unspecified, without bleeding; D13.1 Benign neoplasm of stomach; R01.1 Cardiac murmur, unspecified; M19.90 Unspecified osteoarthritis, unspecified site; L40.9 Psoriasis, unspecified; F41.9 Anxiety disorder, unspecified; Z79.899 Other long term (current) drug therapy
CPT/HCPCS: 43239; 88305; J2250

== ENCOUNTER → 2021-12-29 | Outpatient (REF) | payer BC ==
[~2021-12-29] MED LIST changes: -NS 1,000 ML IV ONE
[2021-12-29 17:32] LABS: BASO % 0.6 % (0.0-1.0); EOS # 0.1 10^3/uL (0.0-0.5); EOS % 1.1 % (0.0-3.0); HEMATOCRIT 40.1 % (36.0-47.0); HEMOGLOBIN 13.1 g/dl (12.0-15.5); LYMPH # 1.3 10^3/uL (1.5-5.0); MEAN CORPUSCULAR HEMOGLOBIN 29.7 pg (27.0-33.0); MEAN CORPUSCULAR HGB CONC 32.7 g/dl (32.0-36.5); MEAN CORPUSCULAR VOLUME 90.9 fl (80.0-96.0); MONO # 0.6 10^3/uL (0.0-0.8); MONO % 9.5 % (2.0-8.0); NEUTROPHILS # 4.3 10^3/uL (1.5-8.5); NEUTROPHILS % 68.3 % (36.0-66.0); PLATELET COUNT, AUTOMATED 268 10^3/uL (150-450); RED BLOOD COUNT 4.41 10^6/uL (4.00-5.40); WHITE BLOOD COUNT 6.3 10^3/uL (4.0-10.0)
[2021-12-29 17:47] LABS: ALBUMIN 3.6 GM/DL (3.2-5.2); ALT/SGPT 21 U/L (12-78); BILIRUBIN,TOTAL 0.4 MG/DL (0.2-1.0); BLOOD UREA NITROGEN 19 MG/DL (7-18); CALCIUM LEVEL 9.2 MG/DL (8.5-10.1); CARBON DIOXIDE LEVEL 27 MEQ/L (21-32); CHLORIDE LEVEL 108 MEQ/L (98-107); CREATININE FOR GFR 0.83 MG/DL (0.55-1.30); GLOMERULAR FILTRATION RATE > 60.0 (>58); GLUCOSE, FASTING 82 MG/DL (70-100); POTASSIUM SERUM 3.9 MEQ/L (3.5-5.1); SODIUM LEVEL 140 MEQ/L (136-145); TOTAL PROTEIN 7.4 GM/DL (6.4-8.2)
[2021-12-29 18:29] LABS: ERYTHROCYTE SEDIMENTATION RATE 13 mm/hr (0-20)
== END ==
LOC: M SFHCRHEU 13:04
PROVIDERS: ATTEND Internal Medicine
DX: L40.50 Arthropathic psoriasis, unspecified (principal); L40.8 Other psoriasis; R76.8 Other specified abnormal immunological findings in serum; Z79.899 Other long term (current) drug therapy

== ENCOUNTER → 2025-06-24 | Outpatient (CLI) | payer BC ==
[~2025-06-24] MED LIST changes: -IBUP-1022 PO; +IBUP600T42 PO
== END ==
LOC: M WHC 07:05
PROVIDERS: ATTEND Obstetrics & Gynecology
DX: Z12.31 Encounter for screening mammogram for malignant neoplasm of breast (principal); R92.343 Mammographic extreme density, bilateral breasts